=== PATIENT | male | born 1985 | race Two or more races ===

== ENCOUNTER 2016-08-15 03:45 | Emergency (ER) | payer BC ==
[~2016-08-15] VITALS: Ht 170.2 cm; Wt 72.1 kg
[~2016-08-15 03:45] MED LIST: IBUPROFEN600 MG ORAL; NORCO 5-325 TA1 EACH ORAL
[2016-08-15] MEDS ORDERED: NKM (04:20)
--- NOTE | 2016-08-15 04:27 | Emergency Room Report ---
History of Present Illness General Chief Complaint: Pain Source: Patient Present Illness HPI This is a 31-year-old male with known past medical history. He presents with chief complaint of left foot pain. He said work for the [employer] on his feet a lot. He said for the last several hours his been getting these sharp pain over the ATFL. Pain is sharp and severe. 10 out of 10. Last only about 3 or 4 seconds. It prevented him from sleeping. Denies any trauma. No other injury. No pain now. Allergies: Coded Allergies: No Known Allergies (Unverified , 08/19/14) Patient History Past Medical History: see triage record, old chart reviewed Past Surgical History: none Pertinent Family History: none Social History: Denies: smoking Immunizations: other Reviewed Nursing Documentation: PMH: Agreed, PSxH: Agreed Nursing Documentation-PMH Past Medical History: No Stated History Review of Systems Eye: Denies: blurred vision, eye pain ENT: Denies: ear pain, nose congestion, throat swelling Respiratory: Denies: cough, shortness of breath Cardiovascular: Denies: chest pain, palpitations Gastrointestinal: Denies: abdominal pain, diarrhea, nausea, vomiting Musculoskeletal: Denies: back pain, joint pain Skin: Denies: rash Neurological: Denies: headache, numbness Endocrine: Denies: increased thirst, increased urine Hematologic/Lymphatic: Denies: easy bruising All Other Systems: negative except mentioned in HPI Physical Exam Vital Signs Date Time Temp Pulse Resp B/P Pulse Ox O2 Delivery O2 Flow Rate FiO2 08/15/16 04:14 97.7 56 16 120/85 99 Room Air vitals normal Sp02 EP Interpretation: reviewed, normal General Appearance: well appearing, no apparent distress, alert Head: normocephalic, atraumatic Eyes: bilateral eye EOMI, bilateral eye PERRL ENT: hearing grossly normal, normal pharynx Neck: full range of motion, supple, no meningismus Respiratory: chest non-tender, lungs clear, normal breath sounds Cardiovascular #1: regular rate, rhythm, no murmur Gastrointestinal: normal bowel sounds, non tender, no mass, no organomegaly, no bruit, non-distended Musculoskeletal: back normal, gait/station normal, normal range of motion Psychiatric: mood/affect normal Skin: warm/dry Medical Decision Making Diagnostic Impression: Primary Impression: Foot pain, left ER Course Patient with left foot pain. Symptom is more consistent with spasm and nerve pain. No fracture dislocation. No foreign body. No septic joint. He is pain- free now. We'll discharge home. Other X-Ray Diagnostic Results Other X-Ray Diagnostic Results : X-Ray Ordered: xr left foot Date: Aug 15, 2016 Time: 04:46 EP Interpretation: Yes Findings: no fractures, no dislocation, no soft tissue swelling Number of Views: 3 Last Vital Signs Date Time Temp Pulse Resp B/P Pulse Ox O2 Delivery O2 Flow Rate FiO2 08/15/16 04:14 97.7 56 16 120/85 99 Room Air Status: improved Disposition: HOME, SELF-CARE Condition: Stable Scripts Ibuprofen* (MOTRIN*) 600 Mg Tablet 600 MG ORAL THREE TIMES A DAY, #30 TAB 0 Refills Prov: KELLI SOLIS M.D. 08/15/16 Patient Instructions: PAIN, Uncertain Cause (Acute) Additional Instructions: Followup with your Dr. in 7 days. Return if symptom worsen. KELLI SOLIS M.D. Aug 15, 2016 04:27
[2016-08-15] MEDS ORDERED: IBUPROFEN600 MG ORAL (04:47)
[2016-08-15 05:00] VITALS: BP 122/82
[2016-08-15 05:01] VITALS: BP 122/82
--- NOTE | 2016-08-15 13:50 | Diagnostic Imaging Report ---
Indication: PAIN Technique: 3 views left foot Comparison: none Findings: No acute fractures. No dislocations. Joint spaces are preserved. Impression: Negative
== END 2016-08-15 05:09 | disposition home or self-care (01) ==
LOC: EMR 04:25
DX: M79.672 Pain in left foot (principal)
CPT/HCPCS: 99283

== ENCOUNTER 2018-05-17 09:16 | Emergency (ER) | payer BC ==
[~2018-05-17] VITALS: Ht 170.2 cm; Wt 72.6 kg
[~2018-05-17 09:16] MED LIST changes: +NKM
[2018-05-17 09:20] VITALS: BP 120/70
[2018-05-17] MEDS ORDERED: BENADRYL25 MG ORAL (10:11)
[2018-05-17] MEDS ORDERED: PREDNISONE20 MG ORAL (10:11)
--- NOTE | 2018-05-17 10:14 | Emergency Room Report ---
History of Present Illness General Chief Complaint: Skin Rash/Abscess Source: Patient Present Illness HPI Patient presents with complaints of rash that is fairly diffuse Started yesterday and has progressed patient feels moderate itching Denies any chest pain or shortness of breath denies any vomiting patient was started on an acne medication 3 weeks ago by wood tool maker Denies any other change in medications Denies any recent travel Patient is a police detective Denies any fevers Allergies: Coded Allergies: No Known Allergies (Unverified , 05/17/18) Patient History Past Medical History: see triage record Pertinent Family History: none Reviewed Nursing Documentation: PMH: Agreed; PSxH: Agreed Nursing Documentation-PMH Past Medical History: No Stated History Review of Systems All Other Systems: negative except mentioned in HPI Physical Exam Vital Signs Date Time Temp Pulse Resp B/P (MAP) Pulse Ox O2 Delivery O2 Flow Rate FiO2 05/17/18 09:20 97.9 86 16 120/70 97 Room Air Sp02 EP Interpretation: reviewed, normal General Appearance: well appearing, no apparent distress Head: normocephalic, atraumatic Eyes: bilateral eye PERRL, bilateral eye EOMI ENT: hearing grossly normal, normal pharynx, TMs + canals normal, uvula midline Neck: full range of motion, supple, no meningismus, no bony tend Respiratory: lungs clear, normal breath sounds, no rhonchi, no respiratory distress, no retraction, no accessory muscle use Cardiovascular #1: normal peripheral pulses, regular rate, rhythm, no edema, no gallop, no JVD, no murmur Gastrointestinal: normal bowel sounds, non tender, soft, no mass, no organomegaly, non-distended, no guarding, no hernia, no pulsatile mass, no rebound Genitourinary: no CVA tenderness Musculoskeletal: normal inspection Neurologic: oriented x3, responsive, 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, motor strength/ tone normal, sensory intact Psychiatric: mood/affect normal Skin: other - Diffuse urticaria involving the neck chest, abdominal bilateral arm and leg area, no target cell appearance, no flaring of erythema, Lymphatic: normal inspection, no adenopathy Medical Decision Making Diagnostic Impression: Primary Impression: Rash and other nonspecific skin eruption ER Course Patient's dermatitis is somewhat nonspecific there is an urticarial component with likely allergic reaction Consideration has to be made regarding the patient's medication he will not take that tomorrow and discuss with dermatology otherwise treated symptomatically No signs of any airway pathology and is stable for initial conservative outpatient trial Last Vital Signs Date Time Temp Pulse Resp B/P (MAP) Pulse Ox O2 Delivery O2 Flow Rate FiO2 05/17/18 09:20 97.9 88 16 120/70 97 Room Air Status: improved Disposition: HOME, SELF-CARE Condition: Improved Scripts Prednisone* (PREDNISONE*) 20 Mg Tablet 20 MG ORAL BID, #10 TAB Prov: Alma Rosa Lujan DO 05/17/18 Diphenhydramine Hcl* (BENADRYL*) 25 Mg Capsule 25 MG ORAL Q6H PRN for Itching for 7 Days, CAP Prov: Alma Rosa Lujan DO 05/17/18 Referrals: NOT CHOSEN IPA/MD,REFERRING (PCP) Patient Instructions: Rash Additional Instructions: Patient is provided with the discharge instructions notified to follow up with primary doctor in the next 2-3 days otherwise return to the er with any worsening symptoms. Also please follow-up with your wood tool maker on Saturday, as the medication that you have we started could potentially cause rash Please note that this report is being documented using [employer] technology. This can lead to erroneous entry secondary to incorrect interpretation by the dictating instrument. Alma Rosa Lujan DO May 17, 2018 10:14
[2018-05-17 10:19] VITALS: BP 120/70
== END 2018-05-17 10:20 | disposition home or self-care (01) ==
LOC: EMR 09:40
DX: R21 Rash and other nonspecific skin eruption (principal)
CPT/HCPCS: 99283; J7512